=== PATIENT | female | born 1995 ===

== ENCOUNTER 2025-03-21 16:11 | Emergency (ER) | payer BC, OTHER ==
[2025-03-21] MEDS: Ondansetron 4 MG/2 ML SDV IVPUSH ONE (19:13)
[2025-03-21 19:21] LABS: BASOPHILS ABSOLUTE AUTO 0.06 K/uL (0.00-0.20); BASOPHILS PERCENT AUTO 0.4 % (0.0-1.0); EOSINOPHILS ABSOLUTE AUTO 0.04 K/uL (0.00-0.45); EOSINOPHILS PERCENT AUTO 0.3 % (0.0-6.0); IMMATURE GRAN ABSOLUTE AUTO 0.16 K/uL (0.00-0.05); IMMATURE GRAN PERCENT AUTO 1.2 % (0.0-0.4); LYMPHOCYTES ABSOLUTE AUTO 3.01 K/uL (1.00-4.80); LYMPHOCYTES PERCENT AUTO 21.8 % (24.0-44.0); MEAN PLATELET VOLUME 10.4 fL (9.4-12.3); MONOCYTES ABSOLUTE AUTO 0.89 K/uL (0.00-0.80); MONOCYTES PERCENT AUTO 6.4 % (0.0-8.0); NEUTROPHILS ABSOLUTE AUTO 9.67 K/uL (1.80-7.70); NEUTROPHILS PERCENT AUTO 69.9 % (41.0-71.0); NRBC ABSOLUTE 0.00 K/uL (0.00-0.02); NRBC PERCENT 0.0 /100WBC (0.0-0.2); PLATELET COUNT,PLT 288 K/uL (150-400); RED BLOOD CELL COUNT 4.76 M/uL (4.10-5.30); WHITE BLOOD CELL COUNT,WBC 13.83 K/uL (3.9-11.3)
[2025-03-21 19:49] LABS: A/G RATIO 0.8 (0.9-1.6); ALANINE AMINOTRANSFERASE,ALT 76.0 IU/L (14-63); ASPARTATE AMNIOTRANSFERASE,AST 23.0 IU/L (15-37); BILIRUBIN TOTAL 0.4 mg/dL (0.2-1.0); BLOOD UREA NITROGEN,BUN 8.0 mg/dL (7.0-18.0); CARBON DIOXIDE,CO2 25.6 mmol/L (21.0-32.0); CHLORIDE,CL 101.0 mmol/L (98-107); CREATININE 0.9 mg/dL (0.6-1.0); EST CRCL DRUG DOSING (CG) 68.97 mL/min; GLUCOSE RANDOM 93.0 mg/dL (74-106); POTASSIUM,K 3.8 mmol/L (3.5-5.1); PROTEIN TOTAL,TP 7.9 g/dL (6.4-8.2); SODIUM,NA 139.0 mmol/L (136-145)
[2025-03-21 19:53] LABS: LACTIC ACID 2.0 mmol/L (0.4-2.0)
[2025-03-21 19:56] LABS: ESTIMATED GFR 88.0 mL/min (>60)
[2025-03-21] MEDS: Iopamidol 755 Mg/ML 100 ML Bottle IVPUSH ONE (20:41)
[2025-03-21] MEDS: Ketorolac 30 MG/ML SDV IVPUSH ONE (20:45)
[2025-03-21] MEDS: Amoxicillin/Clavulanate K 875-125 MG Tab PO ONE (21:07)
== END 2025-03-21 21:19 | disposition home or self-care (01) ==
LOC: MW.ED 16:11
DX: H66.92 Otitis media, unspecified, left ear (principal); J03.90 Acute tonsillitis, unspecified; E86.0 Dehydration; Z79.899 Other long term (current) drug therapy; Z75.3 Unavailability and inaccessibility of health-care facilities
CPT/HCPCS: 36415; 70491; 80053; 83605; 84703; 85025; 87040; 96361; 96374; 96375; 99284; A9270; J1100; J1885; J2270; J2405; J7030; Q9967; 99282